=== PATIENT | male | born 1960 | race Caucasian/White ===

== ENCOUNTER 2018-09-13 10:51 | Inpatient (IN) | payer BC ==
[~2018-09-13] VITALS: Ht 182.9 cm; Wt 137.0 kg
[~2018-09-13 10:51] MED LIST: APIX5TAB2 PO; ASP325T PO; ASP325TEC PO; DILT240C54 PO; FERR325C PO; HYDR12.56; LEVO500T78 PO; LISI10TA; LSNP20T PO; METO50TA7 PO; METR500T PO; MULT-974 PO; PANT40TA2 PO; PRV20T PO
--- OUTSIDE RECORDS SUMMARY | 2018-09-13 10:59 | XMS REPORT | Clinical Summary ---
Author Author [facility] Organization [facility] Address Unknown Phone Unavailable Care Team Providers Care Drop Forger Name Role Phone Jeff Allen MD PCP Kendal Gamino RN Unavailable Unavailable Source Comments Some departments are not documenting in the electronic medical record. If you do not see the information that you expected, contact Release of Information in the Health Information Management department at [phone] for further assistance in locating additional records.[facility] Allergies No Known Allergies Medications End Date Status Medication Sig Dispensed Refills Start Date Active ferrous sulfate 325 mg Take 325 mg 0 (65 mg iron) tablet by mouth daily. Active pravastatin (PRAVACHOL) Take 20 mg by 0 20 mg tablet mouth at bedtime daily. Active APIXABAN (ELIQUIS PO) Take 10 mg by 0 mouth twice daily. Take 5mg in the morning and 5mg in the evening Active METOPROLOL SUCCINATE Take 100 mg 0 (TOPROL XL PO) by mouth twice daily. Active dronedarone (MULTAQ) 400 Take 1 Tab by 30 Tab 6 12/08/201 mg tabletIndications: mouth twice 6 Paroxysmal atrial daily with fibrillation (HCC), meals. Essential hypertension, hypertension with unspecified goal, Alcohol abuse, Sleep apnea, unspecified type, Chronic anticoagulation, Other iron deficiency anemia Active Problems Problem Noted Date Chronic anticoagulation, on apixaban 05/14/2015 Atrial fibrillation 05/14/2015 Paroxysmal atypical atrial flutter 05/09/2015 Paroxysmal atrial fibrillation 04/11/2015 Overview: 11/29/12: Stress test: Normal LV function. EF 62%. Normal LV size. No evidence of ME. Essential hypertension 04/11/2015 Hyperlipidemia 04/11/2015 Alcohol abuse 04/11/2015 Overview: ~1 quart whiskey/week Ex-cigarette smoker 04/11/2015 Overview: DC 2009, 20+PY Sleep apnea 04/11/2015 Overview: 2014:Previously refused CPAP Iron deficiency anemia 04/11/2015 Overview: 02/2015: Gastric ulcers, colonoscopy [place] Resolved Problems Problem Noted Date Resolved Date Anemia 04/11/2015 05/14/2015 Family History Medical History Relation Name Comments Coronary Artery Disease Father Premature Heart Disease Father Cancer Sister Coronary Artery Disease Sister Relation Name Status Comments Father Sister Social History Date Tobacco Use Types Packs/Day Years Used Quit: 07/27/2008 Former Smoker Cigarettes 1 20 Smokeless Tobacco: Never Used Alcohol Use Drinks/Week oz/Week Comments Yes 80 Shots of 48.0 liquor Sex Assigned at Date Recorded Not on file Industry Job Start Date Occupation Not on file Not on file Not on file Travel End Travel History Travel Start No recent travel history available. Last Filed Vital Signs Time Taken Vital Sign Reading 12/03/2015 1:40 PM CDT Blood Pressure 148/96 12/03/2015 1:40 PM CDT Pulse 66 05/15/2015 12:26 PM CDT Temperature 36.7 C (98.1 F) - Respiratory Rate - 05/15/2015 4:00 AM CDT Oxygen Saturation 92% - Inhaled Oxygen - Concentration 12/03/2015 1:40 PM CDT Weight 128.5 kg (283 lb 3.2 oz) 12/03/2015 1:40 PM CDT Height 182.9 cm (6' 0.01") 12/03/2015 1:40 PM CDT Body Mass Index 38.4 Plan of Treatment Health Maintenance Due Date Last Done Comments HEPATITIS C SCREENING 1960 PHYSICAL (COMPREHENSIVE) 1965 EXAM HIV SCREENING 1973 DTAP/TDAP VACCINES (1 - 1976 Tdap) COLORECTAL CANCER 2008 SCREENING SHINGLES RECOMBINANT 2008 VACCINE (1 of 2) INFLUENZA VACCINE 02/24/2018 Results Not on filefrom Last 3 Months Insurance Payer Benefit Subscriber ID Type Phone Address Plan / Group BCBS [facility] xxxxxxxxxxxx PPO PREF CARE BLUE Advance Directives Patient has advance care planning documents, and code status on file. For more information, please contact: [facility] [address] [place] [address] Date Inactivated Comments Code Status Date Activated 05/15/2015 3:14 PM Full Code 05/14/2015 6:42 AM Provider has discussed Code Status No, more discussion w/Patient or Family? needed
--- OUTSIDE RECORDS SUMMARY | 2018-09-13 10:59 | XMS REPORT | Continuity of Care Document ---
Author Author [facility] Organization [facility] Address Unknown Phone Unavailable Allergies Active Description Code Type Severity Reaction Onset Reported/Identified Relationship to Patient Clinical Status Yes NKANo Known Allergies NKA Miscellaneous Allergy Mild N/A 05/10/2009 Medications There is no data. Problems Date Dx Coded Attending Type Code Diagnosis Diagnosed By 05/03/2013 JEANNIE JACK MD 427.31 ATRIAL FIBRILLATION 05/03/2013 JEANNIE JACK MD 557.9 UNSPECIFIED VASCULAR INSUFFICIENCY OF INTESTINE 02/12/2015 ROSA BLEDSOE MD Ot 272.4 02/12/2015 ROSA BLEDSOE MD Ot 278.00 02/12/2015 ROSA BLEDSOE MD Ot 285.9 02/12/2015 LADI ROSS, ROSA Chowdhury Ot 401.9 02/12/2015 ROSA BLEDSOE MD Ot 427.31 02/12/2015 ROSA BLEDSOE MD Ot V85.38 03/19/2015 ROSA BLEDSOE MD Ot 285.9 03/26/2015 ARIANNA ROSS, JONY Hansen Ot 280.9 03/26/2015 ARIANNA ROSS, JONY Hansen Ot 530.10 03/26/2015 ARIANNA ROSS, JONY Hansen Ot 535.40 Procedures There is no data. Results There is no data. Encounters ACCT No. Visit Date/Time Discharge Status Pt. Type Provider Facility Loc./Unit Complaint [id number] 01/19/2018 13:00:00 01/19/2018 23:59:59 CLS Preadmit PERRY ROSS FACC, CATRACHITA RANGEL CCDS [facility] CARD DYSPNEA,HTN, PETER [id number] 01/01/2018 08:00:00 01/01/2018 23:59:59 CLS Preadmit PERRY ROSS FACC, CATRACHITA RANGEL CCDS [facility] CARD DYSPNEA,HTN, PETER, [id number] 05/13/2016 11:28:00 05/13/2016 23:59:59 CLS Preadmit DAVID PASTRANAINE Chris CHOKER HOOKER [facility] RAD SNORING,G47.33 [id number] 03/26/2015 09:01:00 03/26/2015 12:15:00 DIS Outpatient JONY KELLER MD [facility] SDC [id number] 03/22/2015 06:15:00 03/22/2015 23:59:59 CLS Outpatient JONY KELLER MD [facility] PREOP [id number] 02/19/2015 08:09:00 02/19/2015 23:59:59 CLS Outpatient ROSA BLEDSOE MD [facility] LAB [id number] 02/08/2015 13:14:00 02/12/2015 12:25:00 DIS Inpatient ROSA BLEDSOE MD [facility] [id number] 03/24/2013 21:10:00 03/31/2013 17:00:00 DIS Inpatient [id number] 11/25/2012 07:31:00 11/25/2012 23:59:59 CLS Outpatient [id number] 05/03/2013 15:32:00 05/03/2013 23:59:59 CLS Outpatient GUERO ROSS, JEANNIE Hansen
--- NOTE | 2018-09-13 11:27 | ED General ---
General Stated Complaint: HIGH HEMOGLOBIN - TOLD TO COME HER BY [facility] Source of Information: Patient Exam Limitations: No Limitations History of Present Illness Date Seen by Provider: Sep 13, 2018 Time Seen by Provider: 11:24 Initial Comments To ER per private vehicle from [facility] with reports of low hemoglobin. He states he's been having lightheadedness, general fatigue and shortness of breath. He was told today that his hemoglobin is 7.2 at the clinic. He states he does have a history of bleeding hemorrhoids and bright red blood per rectum . He is on Eliquis for history of atrial fibrillation. Follows with Dr. Villarreal. Primary care provider is Iris CARR nurse practitioner of [facility]. States the symptoms have been present for several weeks. Timing/Duration: 1-2 Days Severity: Moderate Associated Systoms: No Headaches; Malaise; No Syncope; Weakness Allergies and Home Medications Allergies Coded Allergies: NKANo Known Allergies (Unverified Allergy, Mild, 05/10/09) Home Medications Diltiazem Hcl 240 Mg Cap.sr.24h, 240 MG PO DAILY, (Reported) Ferrous Sulfate 325 ( 65 )Mg Capsule.sa, 325 ( PO DAILY Prescribed by: ROSA BLEDSOE on 02/12/15 0945 Metoprolol Succinate 50 Mg Tab, 50 MG PO BID Prescribed by: JEANNIE JACK on 03/31/13 0857 Pantoprazole Sodium 40 Mg Tablet.dr, 40 MG PO DAILY Prescribed by: JONY KELLER on 03/26/15 1051 Pravastatin Sodium 20 Mg Tablet, 20 MG PO HS, (Reported) Patient Home Medication List Home Medication List Reviewed: Yes Review of Systems Review of Systems Constitutional: see HPI, weakness EENTM: see HPI Respiratory: see HPI, dyspnea on exertion, short of breath Genitourinary: no symptoms reported Musculoskeletal: no symptoms reported Skin: no symptoms reported Psychiatric/Neurological: No Symptoms Reported Hematologic/Lymphatic: No Symptoms Reported Past Ydkylwz-Jlvoky-Shfznk Hx Patient Social History Recent Foreign Travel: No (N) Contact w/Someone Who Travel: No (N) Immunizations Up To Date Tetanus Booster (TDap): More than 5yrs Seasonal Allergies Seasonal Allergies: No Past Medical History Atrial Fibrillation, Hypertension Sexually Transmitted Disease: No HIV/AIDS: No Colitis Cataract Loss of Vision: Denies Hearing Impairment: Denies Adverse Reaction/Blood Tranf: No Family Medical History No Pertinent Family Hx Physical Exam Vital Signs Vital Signs - First Documented 09/13/18 11:15 Temp 98.0 Pulse 84 Resp 18 B/P (MAP) 140/82 (101) Pulse Ox 98 O2 Delivery Room Air Capillary Refill : Height, Weight, BMI Height: 6'0.00" Weight: 281lbs. 12.8oz. 127.656015uq; BMI Method:Stated General Appearance: No Apparent Distress, WD/WN Eyes: Bilateral Eye Normal Inspection, Bilateral Eye PERRL, Bilateral Eye EOMI HEENT: PERRL/EOMI, TMs Normal, Other (firm mobile nodule to the right cheek nontender with overlying skin normal in appearance. He states that he's had this for 20+ years and that has not changed. This has been evaluated by Dr. Shepard as well.) Neck: Full Range of Motion, Normal Inspection Respiratory: Chest Non Tender, No Accessory Muscle Use, No Respiratory Distress Cardiovascular: Regular Rate, Rhythm, Normal Peripheral Pulses, Other (EKG reveals normal sinus rhythm without ectopy, rate of 75.) Gastrointestinal: Normal Bowel Sounds, Non Tender, Soft Extremity: Normal Capillary Refill, Normal Inspection Neurologic/Psychiatric: Alert, Oriented x3 Progress/Results/Core Measures Suspected Sepsis SIRS Temperature: Pulse: Respiratory Rate: Laboratory Tests 09/13/18 11:45: White Blood Count 5.6 Blood Pressure / Mean: Laboratory Tests 09/13/18 11:45: Creatinine 0.90, Platelet Count 246, Total Bilirubin 0.5 Results/Orders Lab Results Laboratory Tests Test 09/13/18 11:45 Range/Units White Blood Count 5.6 4.3-11.0 10^3/uL Red Blood Count 4.22 L 4.35-5.85 10^6/uL Hemoglobin 7.4 L 13.3-17.7 G/DL Hematocrit 29 L 40-54 % Mean Corpuscular Volume 68 L 80-99 FL Mean Corpuscular Hemoglobin 18 L 25-34 PG Mean Corpuscular Hemoglobin Concent 26 L 32-36 G/DL Red Cell Distribution Width 22.4 H 10.0-14.5 % Platelet Count 246 130-400 10^3/uL Mean Platelet Volume 9.9 7.4-10.4 FL Neutrophils (%) (Auto) 54 42-75 % Lymphocytes (%) (Auto) 31 12-44 % Monocytes (%) (Auto) 10 0-12 % Eosinophils (%) (Auto) 4 0-10 % Basophils (%) (Auto) 1 0-10 % Neutrophils # (Auto) 3.0 1.8-7.8 X 10^3 Lymphocytes # (Auto) 1.7 1.0-4.0 X 10^3 Monocytes # (Auto) 0.6 0.0-1.0 X 10^3 Eosinophils # (Auto) 0.2 0.0-0.3 10^3/uL Basophils # (Auto) 0.0 0.0-0.1 10^3/uL Sodium Level 137 135-145 MMOL/L Potassium Level 4.3 3.6-5.0 MMOL/L Chloride Level 105 98-107 MMOL/L Carbon Dioxide Level 25 21-32 MMOL/L Anion Gap 7 5-14 MMOL/L Blood Urea Nitrogen 8 7-18 MG/DL Creatinine 0.90 0.60-1.30 MG/DL Estimat Glomerular Filtration Rate > 60 BUN/Creatinine Ratio 9 Glucose Level 87 70-105 MG/DL Calcium Level 9.2 8.5-10.1 MG/DL Corrected Calcium 9.1 8.5-10.1 MG/DL Total Bilirubin 0.5 0.1-1.0 MG/DL Aspartate Amino Transf (AST/SGOT) 20 5-34 U/L Alanine Aminotransferase (ALT/SGPT) 14 0-55 U/L Alkaline Phosphatase 79 40-136 U/L Total Protein 6.9 6.4-8.2 GM/DL Albumin 4.1 3.2-4.5 GM/DL My Orders Orders - MARY ALICE MARTINS APRN Cbc With Automated Diff (09/13/18 11:14) Comprehensive Metabolic Panel (09/13/18 11:14) Iv Heplock-Insert (Order) (09/13/18 11:20) Ekg Tracing (09/13/18 11:20) Chest 1 View, Ap/Pa Only (09/13/18 11:20) Red Cells Leukocytes Reduced (09/13/18 11:20) Type And Screen (09/13/18 11:20) Vital Signs/I&O 09/13/18 11:15 Temp 98.0 Pulse 84 Resp 18 B/P (MAP) 140/82 (101) Pulse Ox 98 O2 Delivery Room Air Capillary Refill : Diagnostic Imaging Diagonstic Imaging: Xray Comments NAME: DELMIS ZAPATA [facility] REC#: [id number] PT STATUS: REG ER : 1960 PHYSICIAN: MARY ALICE MARTINS APRN ADMIT DATE: 09/13/18/ER Draft Date of Exam:09/13/18 CHEST 1 VIEW, AP/PA ONLY INDICATION: Low hemoglobin. TIME OF EXAMINATION: 11:58 AM. COMPARISON: 03/25/2013. FINDINGS: The heart size is normal. The pulmonary vascularity is unremarkable. The lungs are clear. No infiltrate, effusion, or pneumothorax is detected. IMPRESSION: No acute cardiopulmonary process is detected. Dictated on workstation # [id number] Dict: 09/13/18 1215 Trans: 09/13/18 1218 [id number] Interpreted by: MICHAELLE FERGUSON MD Electronically signed by: Departure Impression Primary Impression: Symptomatic anemia Additional Impressions: Hematochezia Atrial fibrillation Anticoagulant long-term use Disposition: ADMITTED INPATIENT Condition: Stable Admissions Decision to Admit Reason: Admit from ER (General) Decision to Admit/Date: Sep 13, 2018 Time/Decision to Admit Time: 11:49 Departure-Patient Inst. Referrals: CORAZON CARR (PCP/Family) Primary Care Physician MARY ALICE MARTINS APRN Sep 13, 2018 11:26
[2018-09-13 11:55] LABS: BASOPHILS % (AUTO) 1 % (0-10); EOSINOPHILS # (AUTO) 0.2 10^3/uL (0.0-0.3); EOSINOPHILS % (AUTO) 4 % (0-10); HEMATOCRIT 29 % (40-54); HEMOGLOBIN 7.4 G/DL (13.3-17.7); LYMPHOCYTES # (AUTO) 1.7 X 10^3 (1.0-4.0); LYMPHOCYTES % (AUTO) 31 % (12-44); MEAN CORPUSCULAR HEMOGLOBIN 18 PG (25-34); MEAN CORPUSCULAR HGB CONC 26 G/DL (32-36); MEAN CORPUSCULAR VOLUME 68 FL (80-99); MEAN PLATELET VOLUME 9.9 FL (7.4-10.4); MONOCYTES # (AUTO) 0.6 X 10^3 (0.0-1.0); MONOCYTES % (AUTO) 10 % (0-12); NEUTROPHILS % (AUTO) 54 % (42-75); PLATELET COUNT 246 10^3/uL (130-400); RED CELL DISTRIBUTION WIDTH 22.4 % (10.0-14.5); WHITE BLOOD COUNT 5.6 10^3/uL (4.3-11.0)
[2018-09-13 12:14] LABS: ALANINE AMINOTRANSFERASE 14 U/L (0-55); ALBUMIN 4.1 GM/DL (3.2-4.5); ALKALINE PHOSPHATASE 79 U/L (40-136); BILIRUBIN,TOTAL 0.5 MG/DL (0.1-1.0); BUN/CREATININE RATIO 9; CALCIUM 9.2 MG/DL (8.5-10.1); CARBON DIOXIDE 25 MMOL/L (21-32); CHLORIDE 105 MMOL/L (98-107); GFR ESTIMATED > 60; GLUCOSE 87 MG/DL (70-105); POTASSIUM 4.3 MMOL/L (3.6-5.0); SODIUM 137 MMOL/L (135-145); TOTAL PROTEIN 6.9 GM/DL (6.4-8.2)
--- NOTE | 2018-09-13 12:18 | Diagnostic Imaging Report ---
INDICATION: Low hemoglobin. TIME OF EXAMINATION: 11:58 AM. COMPARISON: 03/25/2013. FINDINGS: The heart size is normal. The pulmonary vascularity is unremarkable. The lungs are clear. No infiltrate, effusion, or pneumothorax is detected. IMPRESSION: No acute cardiopulmonary process is detected. Dictated by: Dictated on workstation # [id number]
[2018-09-13 15:00] VITALS: BP 171/78
[2018-09-13] MEDS ORDERED: NS IV 500 ML 500 ML IV SCH (15:15)
[2018-09-13] MEDS ORDERED: NS IV 1000 ML 1,000 ML IV SCH (15:15)
[2018-09-13] MEDS ORDERED: CATHETER FLUSH 10 ML SYR IV PRN (15:15)
[2018-09-13] MEDS ORDERED: PRAV20TA3 PO (15:19)
[2018-09-13] MEDS ORDERED: APIX5TAB PO (15:19)
[2018-09-13] MEDS ORDERED: METO-395 PO (15:20)
--- NOTE | 2018-09-13 15:21 | NUR ---
WENT OVER THE EXT MED HX WITH THE PATIENT, HE VERIFIED HOW HE TAKES EACH MED. HE STATES HE DOES NOT TAKE ANYTHING OTC.
[2018-09-13 15:35] VITALS: BP 135/72
--- NOTE | 2018-09-13 15:36 | Consultation-Cardiology ---
HPI-Cardiology Cardiology Consultation: Date of Consultation 09/13/18 Time Seen by a Provider: 16:15 Date of Admission 09-13-18 Attending Physician Renny Michaud MD Admitting Physician Andressa Sosa Consulting Physician Ioana Villarreal MD HPI: Chief Complaint: Anemia PAF OAC Mr. Corbin is a 58 year old male admitted to 433 from the ED with anemia. He reports he has had increasing dyspnea for the last couple months. Dyspnea most noticeable when climbing stairs. He went to his PCP's for lab work to be done and was notified he needed to come to [facility] d/t low counts. He denies any c/o CP , palpitations, syncope or near syncope. He reports he has had some dark bowel movements. He has had some bright red blood per rectum. No hematuria. He denies any n/v/d. No c/o fever or chills. Review of Systems-Cardiology Review of Systems Constitutional: No chills, No fever Eyes: No vision change Ears/Nose/Throat: No epistaxis, No recent hearing loss, No ulcerations Respiratory: As described under HPI Cardiovascular: As described under HPI Gastrointestinal: No constipation, No diarrhea, No nausea, No vomiting; stool coloration changes (dark) Genitourinary: No dysuria, No hematuria Skin: No rash, No ulcerations Psychiatric/Neurological: No anxiety, No depression, No seizure, No focal weakness, No syncope Hematologic: No bleeding abnormalities VHN-Tbugbq-Txltwe Hx Patient Social History Alcohol Use: Occasionally Uses Recreational Drug Use: Yes (POT) Smoking Status: Never a Smoker Former smoker/When Quit: Feb 08, 2009 Recent Foreign Travel: No Recent Infectious Disease Expo: No Hospitalization with Isolation: Denies Immunizations Up To Date Tetanus Booster (TDap): More than 5yrs Past Medical History PMH As described under Assessment. Allergies and Home Medications Allergies Coded Allergies: NKANo Known Allergies (Unverified Allergy, Mild, 05/10/09) Home Medications Apixaban 5 Mg Tablet, 5 MG PO BID, (Reported) Metoprolol Succinate 100 Mg Tab.er.24h, 100 MG PO BID, (Reported) Pravastatin Sodium 20 Mg Tablet, 20 MG PO HS, (Reported) Patient Home Medication List Home Medication List Reviewed: Yes Physical Exam-Cardiology Physical Exam Vital Signs/I&O 2/1809/13/18 09/13/18 09/13/18 11:15 14:33 15:00 15:35 Temp 98.0 95.9 98.6 Pulse 84 64 67 66 Resp 18 14 16 18 B/P (MAP) 140/82 (101) 118/69 (85) 171/78 135/72 Pulse Ox 98 98 99 99 O2 Delivery Room Air Room Air Room Air Room Air 09/13/18 09/13/18 15:52 16:04 Temp 97.6 Pulse 70 81 B/P (MAP) 136/72 Pulse Ox 99 O2 Delivery Room Air Capillary Refill : Less Than 3 Seconds Constitutional: AAO x 3, well-developed, well-nourished HEENT: PERRL, other (right side of face with 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 unchanged for several years), hearing is well preserved, oral hygience is good Neck: No carotid bruit; carotid pulses are 2 + bilaterally Respiratory: No accessory muscle use, No respiratory distress; chest expansion is symmetric, chest is bilaterally symmetric, lungs clear to auscultation Cardiovascular: regular rate-rhythm; No JVD; S1 and S2 Gastrointestinal: No tender; soft, round, audible bowel sounds Extremities: no lower extremity edema bilateral Neurologic/Psychiatric: grossly intact, power is 5/5 both on sides Skin: No rash, No ulcerations Data Review Labs Laboratory Tests 09/13/18 11:45: White Blood Count 5.6, Red Blood Count 4.22L, Hemoglobin 7.4L, Hematocrit 29L, Mean Corpuscular Volume 68L, Mean Corpuscular Hemoglobin 18L, Mean Corpuscular Hemoglobin Concent 26L, Red Cell Distribution Width 22.4H, Platelet Count 246, Mean Platelet Volume 9.9, Neutrophils (%) (Auto) 54, Lymphocytes (%) (Auto) 31, Monocytes (%) (Auto) 10, Eosinophils (%) (Auto) 4, Basophils (%) (Auto) 1, Neutrophils # (Auto) 3.0, Lymphocytes # (Auto) 1.7, Monocytes # (Auto) 0.6, Eosinophils # (Auto) 0.2, Basophils # (Auto) 0.0, Sodium Level 137, Potassium Level 4.3, Chloride Level 105, Carbon Dioxide Level 25, Anion Gap 7, Blood Urea Nitrogen 8, Creatinine 0.90, Estimat Glomerular Filtration Rate > 60, BUN/ Creatinine Ratio 9, Glucose Level 87, Calcium Level 9.2, Corrected Calcium 9.1, Total Bilirubin 0.5, Aspartate Amino Transf (AST/SGOT) 20, Alanine Aminotransferase (ALT/SGPT) 14, Alkaline Phosphatase 79, Total Protein 6.9, Albumin 4.1 Radiology NAME: DELMIS CORBIN [facility] REC#: [id number] PT STATUS: ADM IN : 1960 PHYSICIAN: MARY ALICE MARTINS APRN ADMIT DATE: 09/13/18 Signed Date of Exam: 09/13/18 CHEST 1 VIEW, AP/PA ONLY INDICATION: Low hemoglobin. TIME OF EXAMINATION: 11:58 AM. COMPARISON: 03/25/2013. FINDINGS: The heart size is normal. The pulmonary vascularity is unremarkable. The lungs are clear. No infiltrate, effusion, or pneumothorax is detected. IMPRESSION: No acute cardiopulmonary process is detected. Dictated by: Dictated on workstation # [id number] Dict: 09/13/18 1215 Trans: 09/13/18 1512 Interpreted by: MICHAELLE FERGUSON MD Electronically signed by: MICHAELLE FERGUSON MD 09/13/18 1512 A/P-Cardiology Assessment/Admission Diagnosis Anemia of undetermined etiology - suspected GI bleed Exertional shortness of breath, chronic PAFib/Flutter, possibly related to intermittent heavy alcohol use and/or sleep apnea syndrome, s/p a fib ablation with Dr West Apr 2015. 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 Way consulted H/O PAF for which he has been on OAC with Eliquis for stroke prophylaxis - we will hold off on Eliquis until source of blood loss has been determined and treated Telemetry Continue statin and BB Monitor lab closely Further recs will be based on his hospital course We would like to thank medical services for this consult RANI CASTLE Sep 13, 2018 15:36
[2018-09-13 15:52] VITALS: BP 136/72
[2018-09-13 16:00] VITALS: BP 140/76
[2018-09-13] MEDS ORDERED: FLU QUADRIvalent (5+ YOA) 2018-2019 (AFLURIA) 0.5 ML IM ONE (16:00)
--- NOTE | 2018-09-13 16:29 | Consultation ---
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 Garber , who has been managing him for arrhythmias. His hemoglobin was found to be decreased at 7.4 and he has since been evaluated in the emergency room. He is due to receive blood transfusion. During the visit, he reports ongoing, intermittent rectal bleeding for several days. In the past, he has a history of a tubulovillous adenoma of the sigmoid colon about 6 years ago. A follow-up colonoscopy in 2014 was negative for recurrence of the po Allergies and Home Medications Allergies Coded Allergies: NKANo Known Allergies (Unverified Allergy, Mild, 05/10/09) Home Medications Apixaban 5 Mg Tablet, 5 MG PO BID, (Reported) Metoprolol Succinate 100 Mg Tab.er.24h, 100 MG PO BID, (Reported) Pravastatin Sodium 20 Mg Tablet, 20 MG PO HS, (Reported) Patient Home Medication List Home Medication List Reviewed: Yes Past Nmqdgns-Tgdotf-Abqwim Hx Patient Social History Alcohol Use: Occasionally Uses Alcohol Beverage of Choice: Whiskey Recreational Drug Use: No Smoking Status: Never a Smoker Recent Foreign Travel: No Contact w/Someone Who Travel: No Recent Infectious Disease Expo: No Recent Hopitalizations: No Immunizations Up To Date Tetanus Booster (TDap): More than 5yrs Seasonal Allergies Seasonal Allergies: No Past Medical History Surgeries: Yes (WISDOM TEETH) Respiratory: No Cardiac: No Atrial Fibrillation, Hypertension Neurological: No Sexually Transmitted Disease: No HIV/AIDS: No Gastrointestinal: Yes (GI BLEED) Colitis Musculoskeletal: No Endocrine: No (was told he was borderline dm) Cataract Loss of Vision: Denies Hearing Impairment: Denies Cancer: No Psychosocial: No Integumentary: No Blood Disorders: No Adverse Reaction/Blood Tranf: No Family Medical History No Pertinent Family Hx Review of Systems-General Constitutional: weakness EENTM: no symptoms reported Respiratory: no symptoms reported Cardiovascular: palpitations Gastrointestinal: see HPI Genitourinary: no symptoms reported Musculoskeletal: no symptoms reported Skin: no symptoms reported Psychiatric/Neurological: No Symptoms Reported Physical Exam-General Problems Physical Exam Vital Signs Vital Signs - First Documented 09/13/18 11:15 Temp 98.0 Pulse 84 Resp 18 B/P (MAP) 140/82 (101) Pulse Ox 98 O2 Delivery Room Air Capillary Refill : Less Than 3 Seconds General Appearance: no apparent distress Respiratory: lungs clear Cardiovascular: tachycardia Gastrointestinal: non tender Rectal: deferred Neurologic/Psychiatric: alert Skin: pallor Comments long-standing swelling over the right parotid region, 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 Assessment/Plan Assessment/Plan Admission Diagnosis/Plan gentleman with anemia, possibly due to chronic blood loss. Previous history of colon polyps. Reasonable to observe, transfuse and perform colonoscopy during the current hospital admission. Admission Status: Observation JONY KELLER MD Sep 13, 2018 16:29
--- NOTE | 2018-09-13 17:07 | Consultation-Cardiology ---
HPI-Cardiology Cardiology Consultation: Date of Consultation 09/13/18 Time Seen by a Provider: 16:50 Date of Admission Attending Physician Renny Michaud MD Admitting Physician Andressa Sosa Consulting Physician CATRACHITA AMADOR MD, MA, FACP, FACC, [facility], CCDS Physician requesting consult: Dr Michaud HPI: Chief Complaint: Reason for consultation: Anemia, PAF, OAC HPI Mr. Corbin is a 58 year old male admitted to [facility] from the ED with anemia. He reports he has had increasing dyspnea for the last couple months. Dyspnea most noticeable when climbing stairs. He went to his PCP's for lab work to be done and was notified he needed to come to [facility] d/t low counts. He denies any c/o CP , palpitations, syncope or near syncope. He reports he has had some dark bowel movements. He has had some bright red blood per rectum. No hematuria. He denies any n/v/d. No c/o fever or chills. Review of Systems-Cardiology Review of Systems Constitutional: No chills, No fever Eyes: No vision change Ears/Nose/Throat: No epistaxis, No recent hearing loss, No ulcerations Respiratory: As described under HPI Cardiovascular: As described under HPI Gastrointestinal: No constipation, No diarrhea, No nausea, No vomiting; stool coloration changes (dark) Genitourinary: No dysuria, No hematuria Skin: No rash, No ulcerations Psychiatric/Neurological: No anxiety, No depression, No seizure, No focal weakness, No syncope Hematologic: No bleeding abnormalities [id number]-[id number] Hx Patient Social History Alcohol Use: Occasionally Uses Recreational Drug Use: No Smoking Status: Never a Smoker Former smoker/When Quit: Feb 08, 2009 Recent Foreign Travel: No Recent Infectious Disease Expo: No Hospitalization with Isolation: Denies Physical Abuse Screen: No Sexual Abuse: No Immunizations Up To Date Tetanus Booster (TDap): More than 5yrs Past Medical History PMH As described under Assessment. Allergies and Home Medications Allergies Coded Allergies: NKANo Known Allergies (Unverified Allergy, Mild, 05/10/09) Home Medications Apixaban 5 Mg Tablet, 5 MG PO BID, (Reported) Metoprolol Succinate 100 Mg Tab.er.24h, 100 MG PO BID, (Reported) Pravastatin Sodium 20 Mg Tablet, 20 MG PO HS, (Reported) Patient Home Medication List Home Medication List Reviewed: Yes Physical Exam-Cardiology Physical Exam Vital Signs/I&O 09/13/18 09/13/18 09/13/18 09/13/18 11:15 14:33 15:00 15:35 Temp 98.0 95.9 98.6 Pulse 84 64 67 66 Resp 18 14 16 18 B/P (MAP) 140/82 (101) 118/69 (85) 171/78 135/72 Pulse Ox 98 98 99 99 O2 Delivery Room Air Room Air Room Air Room Air 09/13/18 09/13/18 15:52 16:04 Temp 97.6 Pulse 70 67 B/P (MAP) 136/72 Pulse Ox 99 O2 Delivery Room Air Capillary Refill : Less Than 3 Seconds Constitutional: AAO x 3, well-developed, well-nourished HEENT: PERRL, other (right side of face with 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 unchanged for several years), hearing is well preserved, oral hygience is good Neck: No carotid bruit; carotid pulses are 2 + bilaterally Respiratory: No accessory muscle use, No respiratory distress; chest expansion is symmetric, chest is bilaterally symmetric, lungs clear to auscultation Cardiovascular: regular rate-rhythm; No JVD; S1 and S2 Gastrointestinal: No tender; soft, round, audible bowel sounds Rectal: deferred Extremities: no lower extremity edema bilateral Neurologic/Psychiatric: grossly intact, power is 5/5 both on sides Skin: No rash, No ulcerations Data Review Labs Laboratory Tests 09/13/18 11:45: White Blood Count 5.6, Red Blood Count 4.22L, Hemoglobin 7.4L, Hematocrit 29L, Mean Corpuscular Volume 68L, Mean Corpuscular Hemoglobin 18L, Mean Corpuscular Hemoglobin Concent 26L, Red Cell Distribution Width 22.4H, Platelet Count 246, Mean Platelet Volume 9.9, Neutrophils (%) (Auto) 54, Lymphocytes (%) (Auto) 31, Monocytes (%) (Auto) 10, Eosinophils (%) (Auto) 4, Basophils (%) (Auto) 1, Neutrophils # (Auto) 3.0, Lymphocytes # (Auto) 1.7, Monocytes # (Auto) 0.6, Eosinophils # (Auto) 0.2, Basophils # (Auto) 0.0, Sodium Level 137, Potassium Level 4.3, Chloride Level 105, Carbon Dioxide Level 25, Anion Gap 7, Blood Urea Nitrogen 8, Creatinine 0.90, Estimat Glomerular Filtration Rate > 60, BUN/ Creatinine Ratio 9, Glucose Level 87, Calcium Level 9.2, Corrected Calcium 9.1, Total Bilirubin 0.5, Aspartate Amino Transf (AST/SGOT) 20, Alanine Aminotransferase (ALT/SGPT) 14, Alkaline Phosphatase 79, Total Protein 6.9, Albumin 4.1 Laboratory Tests 09/13/18 11:45 A/P-Cardiology Assessment/Admission Diagnosis GI bleed leading to anemia Exertional shortness of breath, chronic PAFib/Flutter, possibly related to intermittent heavy alcohol use and/or sleep apnea syndrome, s/p a fib ablation with Dr West Apr 2015. 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 Way consulted H/O PAF for which he has been on OAC with Eliquis for stroke prophylaxis - we will hold off on Eliquis until source of blood loss has been determined and treated Telemetry Continue statin and BB Monitor lab closely Further recs will be based on his hospital course We would like to thank medical services for this consult CATRACHITA AMADOR MD FACP [facility] CCDS Sep 13, 2018 17:06
[2018-09-13 17:50] VITALS: BP 140/76
[2018-09-13 20:00] VITALS: BP 147/74
[2018-09-13] MEDS ORDERED: NON-FORMULARY MEDICATION 1 EA EA (Pravastatin Sodium 20 MG) PO SCH (21:00)
[2018-09-13] MEDS: meTOprolol SUCCINATE 100 MG (TOPROL XL) TAB PO SCH (21:23)
[2018-09-13] MEDS: SIMvastatin 10 MG (ZOCOR) TAB PO SCH (21:23)
[2018-09-14] VITALS: BP 132/73
[2018-09-14 04:00] VITALS: BP 129/70
[2018-09-14 06:53] LABS: BASOPHILS % (AUTO) 0 % (0-10); EOSINOPHILS # (AUTO) 0.2 10^3/uL (0.0-0.3); EOSINOPHILS % (AUTO) 3 % (0-10); HEMATOCRIT 29 % (40-54); HEMOGLOBIN 7.8 G/DL (13.3-17.7); LYMPHOCYTES # (AUTO) 1.2 X 10^3 (1.0-4.0); LYMPHOCYTES % (AUTO) 24 % (12-44); MEAN CORPUSCULAR HEMOGLOBIN 18 PG (25-34); MEAN CORPUSCULAR HGB CONC 27 G/DL (32-36); MEAN CORPUSCULAR VOLUME 68 FL (80-99); MONOCYTES # (AUTO) 0.4 X 10^3 (0.0-1.0); MONOCYTES % (AUTO) 8 % (0-12); NEUTROPHILS # (AUTO) 3.3 X 10^3 (1.8-7.8); NEUTROPHILS % (AUTO) 64 % (42-75); PLATELET COUNT 131 10^3/uL (130-400); RED CELL DISTRIBUTION WIDTH 22.7 % (10.0-14.5); WHITE BLOOD COUNT 5.1 10^3/uL (4.3-11.0)
[2018-09-14 07:26] LABS: ALANINE AMINOTRANSFERASE 14 U/L (0-55); ALBUMIN 3.7 GM/DL (3.2-4.5); ALKALINE PHOSPHATASE 72 U/L (40-136); BILIRUBIN,TOTAL 0.8 MG/DL (0.1-1.0); BUN/CREATININE RATIO 12; CALCIUM 8.9 MG/DL (8.5-10.1); CARBON DIOXIDE 23 MMOL/L (21-32); CHLORIDE 106 MMOL/L (98-107); CREATININE SERUM 0.84 MG/DL (0.60-1.30); GFR ESTIMATED > 60; GLUCOSE 95 MG/DL (70-105); POTASSIUM 4.3 MMOL/L (3.6-5.0); SODIUM 139 MMOL/L (135-145); TOTAL PROTEIN 6.2 GM/DL (6.4-8.2)
[2018-09-14 08:00] VITALS: BP 125/82
[2018-09-14] MEDS: meTOprolol SUCCINATE 100 MG (TOPROL XL) TAB PO SCH ×2 (08:43→20:33)
--- NOTE | 2018-09-14 09:02 | NUR ---
DR KELLER IN TO SEE PATIENT, NEW ORDERS RECEIVED.
--- NOTE | 2018-09-14 10:48 | Progress Note-Cardiology ---
Cardiology SOAP Progress Note Objective: I&O/Vital Signs 09/14/18 09/14/18 09/14/18 09/14/18 00:00 01:00 04:00 07:00 Temp 98.9 99.1 Pulse 78 68 66 64 Resp 20 20 B/P (MAP) 132/73 (92) 129/70 (89) Pulse Ox 96 97 O2 Delivery Room Air Room Air 09/14/18 08:00 Temp 98.4 Pulse 91 Resp 18 B/P (MAP) 125/82 (96) Pulse Ox 97 O2 Delivery Room Air 09/14/18 00:00 Intake Total 340 ml Output Total 675 ml Balance -335 ml Weight (Pounds): 302 Weight (Ounces): 0.0 Weight (Calculated Kilograms): 136.998572 Constitutional: AAO x 3, well-developed, well-nourished Respiratory: No accessory muscle use, No respiratory distress; chest expansion is symmetric, chest is bilaterally symmetric, lungs clear to auscultation Cardiovascular: regular rate-rhythm; No JVD; S1 and S2 Gastrointestional: No tender; soft, round, audible bowel sounds Extremities: no lower extremity edema bilateral Neurologic/Psychiatric: grossly intact, power is 5/5 both on sides Skin: No rash, No ulcerations Results/Procedures: Labs Laboratory Tests 09/13/18 11:45: White Blood Count 5.6, Red Blood Count 4.22L, Hemoglobin 7.4L, Hematocrit 29L, Mean Corpuscular Volume 68L, Mean Corpuscular Hemoglobin 18L, Mean Corpuscular Hemoglobin Concent 26L, Red Cell Distribution Width 22.4H, Platelet Count 246, Mean Platelet Volume 9.9, Neutrophils (%) (Auto) 54, Lymphocytes (%) (Auto) 31, Monocytes (%) (Auto) 10, Eosinophils (%) (Auto) 4, Basophils (%) (Auto) 1, Neutrophils # (Auto) 3.0, Lymphocytes # (Auto) 1.7, Monocytes # (Auto) 0.6, Eosinophils # (Auto) 0.2, Basophils # (Auto) 0.0, Sodium Level 137, Potassium Level 4.3, Chloride Level 105, Carbon Dioxide Level 25, Anion Gap 7, Blood Urea Nitrogen 8, Creatinine 0.90, Estimat Glomerular Filtration Rate > 60, BUN/ Creatinine Ratio 9, Glucose Level 87, Calcium Level 9.2, Corrected Calcium 9.1, Total Bilirubin 0.5, Aspartate Amino Transf (AST/SGOT) 20, Alanine Aminotransferase (ALT/SGPT) 14, Alkaline Phosphatase 79, Total Protein 6.9, Albumin 4.1 09/14/18 05:35: White Blood Count 5.1, Red Blood Count 4.26L, Hemoglobin 7.8L, Hematocrit 29L, Mean Corpuscular Volume 68L, Mean Corpuscular Hemoglobin 18L, Mean Corpuscular Hemoglobin Concent 27L, Red Cell Distribution Width 22.7H, Platelet Count 131, Mean Platelet Volume , Neutrophils (%) (Auto) 64, Lymphocytes (%) (Auto) 24, Monocytes (%) (Auto) 8, Eosinophils (%) (Auto) 3, Basophils (%) (Auto) 0, Neutrophils # (Auto) 3.3, Lymphocytes # (Auto) 1.2, Monocytes # (Auto) 0.4, Eosinophils # (Auto) 0.2, Basophils # (Auto) 0.0, Sodium Level 139, Potassium Level 4.3, Chloride Level 106, Carbon Dioxide Level 23, Anion Gap 10, Blood Urea Nitrogen 10, Creatinine 0.84, Estimat Glomerular Filtration Rate > 60, BUN/ Creatinine Ratio 12, Glucose Level 95, Calcium Level 8.9, Corrected Calcium 9.1 , Total Bilirubin 0.8, Aspartate Amino Transf (AST/SGOT) 21, Alanine Aminotransferase (ALT/SGPT) 14, Alkaline Phosphatase 72, Total Protein 6.2L, Albumin 3.7 A/P: Assessment: GI bleed leading to anemia Exertional shortness of breath, chronic PAFib/Flutter, possibly related to intermittent heavy alcohol use and/or sleep apnea syndrome, s/p a fib ablation with Dr West Apr 2015. 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 Way consulted H/O PAF for which he has been on OAC with Eliquis for stroke prophylaxis - we will hold off on Eliquis until source of blood loss has been determined and treated - colo/EGD planned for tomorrow with Dr. Way I have spoke with Dr. Way this morning Continue statin and BB Monitor lab closely RANI CASTLE Sep 14, 2018 10:48
--- NOTE | 2018-09-14 11:41 | Progress Note (SOAP) ---
Subjective Date Seen by a Provider: Sep 14, 2018 Time Seen by a Provider: 09:15 Subjective/Events-last exam Patient has not passed any stool yet. Hemoglobin 7.8 with 1 unit of blood transfusion. No cardiac symptoms. Review of Systems General: No Chills, No Night Sweats, No Fatigue, No Malaise HEENT: No Head Aches, No Eye Pain, No Ear Pain, No Dysphasia, No Sinus Congestion, No Post Nasal Drip, No Sore Throat Pulmonary: No Dyspnea, No Cough, No Pleuritic Chest Pain Cardiovascular: No: Chest Pain, Palpitations, Orthopnea, Paroxysmal Noc. Dyspnea, Edema, Lt Headedness Gastrointestinal: No: Nausea, Vomiting, Abdominal Pain, Diarrhea, Constipation , Melena, Hematochezia Genitourinary: No Dysuria, No Frequency, No Incontinence, No Hematuria, No Retention Musculoskeletal: No: other, neck pain, shoulder pain, arm pain, back pain, hand pain, leg pain, foot pain Neurological: No: Weakness, Numbness, Incoordination, Change in speech, Confusion, Seizures, Other Objective Exam Vital Signs Date Time Temp Pulse Resp B/P (MAP) Pulse Ox O2 Delivery O2 Flow Rate FiO2 09/14/18 08:10 96 Room Air 09/14/18 08:00 98.4 91 18 125/82 (96) 97 Room Air 09/14/18 07:00 64 09/14/18 04:00 99.1 66 20 129/70 (89) 97 Room Air 09/14/18 01:00 68 09/14/18 00:00 98.9 78 20 132/73 (92) 96 Room Air 09/13/18 20:50 96 Room Air 09/13/18 20:00 99.3 69 16 147/74 (98) 96 Room Air 09/13/18 19:00 71 09/13/18 17:50 97.1 68 140/76 09/13/18 16:04 67 09/13/18 16:00 97.6 68 18 140/76 (97) 99 Room Air 09/13/18 15:52 97.6 70 136/72 99 Room Air 09/13/18 15:35 98.6 66 18 135/72 99 Room Air 09/13/18 15:00 95.9 67 16 171/78 99 Room Air 09/13/18 15:00 99 Room Air 09/13/18 14:33 64 14 118/69 (85) 98 Room Air I & O 09/14/18 06:59 Intake Total 440 ml Output Total 1125 ml Balance -685 ml Capillary Refill : Less Than 3 Seconds General Appearance: Anxious Neck: Normal Inspection Respiratory: Lungs Clear Cardiovascular: Regular Rate, Rhythm Gastrointestinal: non tender, soft Neurologic/Psychiatric: Alert, Oriented x3 Skin: Warm/Dry Results Lab Laboratory Tests 09/13/18 11:45: White Blood Count 5.6, Red Blood Count 4.22L, Hemoglobin 7.4L, Hematocrit 29L, Mean Corpuscular Volume 68L, Mean Corpuscular Hemoglobin 18L, Mean Corpuscular Hemoglobin Concent 26L, Red Cell Distribution Width 22.4H, Platelet Count 246, Mean Platelet Volume 9.9, Neutrophils (%) (Auto) 54, Lymphocytes (%) (Auto) 31, Monocytes (%) (Auto) 10, Eosinophils (%) (Auto) 4, Basophils (%) (Auto) 1, Neutrophils # (Auto) 3.0, Lymphocytes # (Auto) 1.7, Monocytes # (Auto) 0.6, Eosinophils # (Auto) 0.2, Basophils # (Auto) 0.0, Sodium Level 137, Potassium Level 4.3, Chloride Level 105, Carbon Dioxide Level 25, Anion Gap 7, Blood Urea Nitrogen 8, Creatinine 0.90, Estimat Glomerular Filtration Rate > 60, BUN/ Creatinine Ratio 9, Glucose Level 87, Calcium Level 9.2, Corrected Calcium 9.1, Total Bilirubin 0.5, Aspartate Amino Transf (AST/SGOT) 20, Alanine Aminotransferase (ALT/SGPT) 14, Alkaline Phosphatase 79, Total Protein 6.9, Albumin 4.1 09/14/18 05:35: White Blood Count 5.1, Red Blood Count 4.26L, Hemoglobin 7.8L, Hematocrit 29L, Mean Corpuscular Volume 68L, Mean Corpuscular Hemoglobin 18L, Mean Corpuscular Hemoglobin Concent 27L, Red Cell Distribution Width 22.7H, Platelet Count 131, Mean Platelet Volume , Neutrophils (%) (Auto) 64, Lymphocytes (%) (Auto) 24, Monocytes (%) (Auto) 8, Eosinophils (%) (Auto) 3, Basophils (%) (Auto) 0, Neutrophils # (Auto) 3.3, Lymphocytes # (Auto) 1.2, Monocytes # (Auto) 0.4, Eosinophils # (Auto) 0.2, Basophils # (Auto) 0.0, Sodium Level 139, Potassium Level 4.3, Chloride Level 106, Carbon Dioxide Level 23, Anion Gap 10, Blood Urea Nitrogen 10, Creatinine 0.84, Estimat Glomerular Filtration Rate > 60, BUN/ Creatinine Ratio 12, Glucose Level 95, Calcium Level 8.9, Corrected Calcium 9.1 , Total Bilirubin 0.8, Aspartate Amino Transf (AST/SGOT) 21, Alanine Aminotransferase (ALT/SGPT) 14, Alkaline Phosphatase 72, Total Protein 6.2L, Albumin 3.7 Assessment/Plan Assessment/Plan Assess & Plan/Chief Complaint gentleman with anemia, possibly due to chronic blood loss. Previous history of colon polyps. Reasonable to observe, transfuse and perform colonoscopy during the current hospital admission. Gentleman with chronic anemia due to GI blood loss. Anti-coagulation on hold. Reasonable to use low molecular weight heparin as bridge therapy to protect against against stroke. Colonoscopy scheduled for . Final Diagnosis Personal history of polyps. Chronic GI blood loss. Paroxysmal atrial tachycardia Clinical Quality Measures DVT/VTE Risk/Contraindication: Risk Factor Score Per Nursin RFS Level Per Nursing on Admit: 3=High JONY KELLER MD Sep 14, 2018 11:41
[2018-09-14 12:00] VITALS: BP 128/73
--- NOTE | 2018-09-14 13:51 | History & Physical-Hospitalist ---
History of Present Illness HPI/Chief Complaint The patient is a 58-year-old white male who presented to the emergency room yesterday with complaints of generalized weakness and loss of energy. On workup he was found to have a hemoglobin of 7.4. I questioned him about his stools. He reports that he has been having red blood in the stools since 2015. This coincided with his having an ablation a [facility] for supraventricular tachycardias. He thought that this represented blood from his hemorrhoids. There has been no black blood to be seen. He had a contact in January 2015 which his hemoglobin was 7.3. He had a colonoscopy and upper endoscopy performed by Dr. Way which produced a nonspecific gastritis and no sites of bleeding in the colon. In 2012 he had a tubular villous adenoma in the sigmoid colon which was removed endoscopically. At that time he had what appeared to be thickening and ulceration in the right colon with the possibility of ischemic changes. Date Seen 09/14/18 Attending Physician Renny Pizano MD PCP Andressa Sosa Referring Physician Date of Admission Sep 13, 2018 at 12:23 Home Medications & Allergies Home Medications Reviewed patient Home Medication Reconciliation performed by pharmacy medication reconciliations medical records technician and/or nursing. Patients Allergies have been reviewed. Allergies Allergies Coded Allergies NKANo Known Allergies (Unverified Allergy, Mild, 05/10/09) Past Ijrecib-Bmubgb-Frxldt Hx Patient Social History Alcohol Use: Occasionally Uses Alcohol Beverage of Choice: Whiskey Recreational Drug Use: No Smoking Status: Never a Smoker Physical Abuse Screen: No Sexual Abuse: No Recent Foreign Travel: No Contact w/other who traveled: No Recent Hopitalizations: No Recent Infectious Disease Expo: No Immunizations Up To Date Tetanus Booster (TDap): More than 5yrs Seasonal Allergies Seasonal Allergies: No Past Medical History Cardiac: Atrial Fibrillation, Hypertension Sexually Transmitted Disease: No HIV/AIDS: No Gastrointestinal: Colitis HEENT: Cataract Loss of Vision: Denies Hearing Impairment: Denies History of Blood Disorders: No Adverse Reaction to Blood Rodarte: No Family History No Pertinent Family Hx Review of Systems Constitutional: see HPI EENTM: no symptoms reported Respiratory: short of breath (easily winded with exercise) Cardiovascular: palpitations Gastrointestinal: other (hematochezia/hemorrhoids) Genitourinary: no symptoms reported Musculoskeletal: no symptoms reported Skin: no symptoms reported Psychiatric/Neurological: No Symptoms Reported Physical Exam Physical Exam Vital Signs Vital Signs - First Documented 09/13/18 11:15 Temp 98.0 Pulse 84 Resp 18 B/P (MAP) 140/82 (101) Pulse Ox 98 O2 Delivery Room Air Capillary Refill : Less Than 3 Seconds Height, Weight, BMI Height: 6'0.00" Weight: 302lbs. 0.0oz. 136.988291pr; 41.0 BMI Method:Stated General Appearance: No Apparent Distress, WD/WN Eyes: Bilateral Eye Normal Inspection HEENT: Normal ENT Inspection Neck: Normal Inspection Cardiovascular: Regular Rate, Rhythm, No Edema, No Gallop, No JVD, No Murmur Gastrointestinal: Normal Bowel Sounds, No Organomegaly Back: Normal Inspection Extremity: Normal Capillary Refill, Normal Inspection, Normal Range of Motion Neurologic/Psychiatric: Alert, Oriented x3, No Motor/Sensory Deficits, Normal Mood/Affect Skin: Normal Color, Warm/Dry Lymphatic: No Adenopathy Results Results/Procedures Labs Laboratory Tests 09/13/18 11:45 09/14/18 05:35 Patient resulted labs reviewed. Assessment/Plan Admission Diagnosis Anemia/hemoglobin 7.4 Admission Status: Inpatient Order (span 2 midnights) Reason for Inpatient Admission: Requires surveillance and upper and lower endoscopy Clinical Quality Measures DVT/VTE Risk/Contraindication: Risk Factor Score Per Nursin RFS Level Per Nursing on Admit: 3=High RENNY PIZANO MD Sep 14, 2018 13:51
[2018-09-14] MEDS ORDERED: MAGNESIUM CITRATE 300 ML BTL PO NR (14:00)
[2018-09-14 15:49] VITALS: BP 124/75
[2018-09-14] MEDS: ENOXAPARIN 300 MG/3 ML (LOVENOX) MULTI-DOSE VIAL SQ SCH (16:40)
--- NOTE | 2018-09-14 17:30 | Progress Note-Cardiology ---
Cardiology SOAP Progress Note Subjective: No cp or palp or syncope No significant abd discomfort No shortness of breath Objective: I&O/Vital Signs 09/14/18 09/14/18 09/14/18 09/14/18 07:00 08:00 08:10 12:00 Temp 98.4 98.7 Pulse 64 91 63 Resp 18 18 B/P (MAP) 125/82 (96) 128/73 (91) Pulse Ox 97 96 96 O2 Delivery Room Air Room Air Room Air 09/14/18 09/14/18 13:00 15:49 Temp 98.3 Pulse 68 75 Resp 20 B/P (MAP) 124/75 (91) Pulse Ox 99 O2 Delivery Room Air 09/14/18 00:00 Intake Total 340 ml Output Total 675 ml Balance -335 ml Weight (Pounds): 302 Weight (Ounces): 0.0 Weight (Calculated Kilograms): 136.810563 Constitutional: AAO x 3, well-developed, well-nourished Respiratory: No accessory muscle use, No respiratory distress; chest expansion is symmetric, chest is bilaterally symmetric, lungs clear to auscultation Cardiovascular: regular rate-rhythm; No JVD; S1 and S2 Gastrointestional: No tender; soft, round, audible bowel sounds Extremities: no lower extremity edema bilateral Neurologic/Psychiatric: grossly intact, power is 5/5 both on sides Skin: No rash, No ulcerations Results/Procedures: Labs Laboratory Tests 09/14/18 05:35: White Blood Count 5.1, Red Blood Count 4.26L, Hemoglobin 7.8L, Hematocrit 29L, Mean Corpuscular Volume 68L, Mean Corpuscular Hemoglobin 18L, Mean Corpuscular Hemoglobin Concent 27L, Red Cell Distribution Width 22.7H, Platelet Count 131, Mean Platelet Volume , Neutrophils (%) (Auto) 64, Lymphocytes (%) (Auto) 24, Monocytes (%) (Auto) 8, Eosinophils (%) (Auto) 3, Basophils (%) (Auto) 0, Neutrophils # (Auto) 3.3, Lymphocytes # (Auto) 1.2, Monocytes # (Auto) 0.4, Eosinophils # (Auto) 0.2, Basophils # (Auto) 0.0, Sodium Level 139, Potassium Level 4.3, Chloride Level 106, Carbon Dioxide Level 23, Anion Gap 10, Blood Urea Nitrogen 10, Creatinine 0.84, Estimat Glomerular Filtration Rate > 60, BUN/ Creatinine Ratio 12, Glucose Level 95, Calcium Level 8.9, Corrected Calcium 9.1 , Total Bilirubin 0.8, Aspartate Amino Transf (AST/SGOT) 21, Alanine Aminotransferase (ALT/SGPT) 14, Alkaline Phosphatase 72, Total Protein 6.2L, Albumin 3.7 Laboratory Tests 09/13/18 11:45 09/14/18 05:35 A/P: Assessment: GI bleed leading to anemia. Pt awaiting endoscopy with Dr Way Exertional shortness of breath, chronic PAFib/Flutter, possibly related to intermittent heavy alcohol use and/or sleep apnea syndrome, s/p a fib ablation with Dr West Apr 2015. 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 We recommend that this be done as soon as possible so that he doesn't stay unprotected against thromboembolic stroke for long * I answered his CV-related questions CATRACHITA AMADOR MD FACP [facility] Sep 14, 2018 17:30
[2018-09-14 20:00] VITALS: BP 138/62
[2018-09-14] MEDS: SIMvastatin 10 MG (ZOCOR) TAB PO SCH (20:33)
[2018-09-15 00:25] VITALS: BP 138/61
[2018-09-15] MEDS: ENOXAPARIN 300 MG/3 ML (LOVENOX) MULTI-DOSE VIAL SQ SCH (03:17)
[2018-09-15 03:35] VITALS: BP 130/67
[2018-09-15 05:45] LABS: BASOPHILS % (AUTO) 1 % (0-10); EOSINOPHILS # (AUTO) 0.2 10^3/uL (0.0-0.3); EOSINOPHILS % (AUTO) 3 % (0-10); HEMATOCRIT 32 % (40-54); HEMOGLOBIN 8.4 G/DL (13.3-17.7); LYMPHOCYTES # (AUTO) 1.3 X 10^3 (1.0-4.0); LYMPHOCYTES % (AUTO) 22 % (12-44); MEAN CORPUSCULAR HEMOGLOBIN 18 PG (25-34); MEAN CORPUSCULAR HGB CONC 27 G/DL (32-36); MEAN CORPUSCULAR VOLUME 67 FL (80-99); MEAN PLATELET VOLUME 10.1 FL (7.4-10.4); MONOCYTES # (AUTO) 0.5 X 10^3 (0.0-1.0); MONOCYTES % (AUTO) 8 % (0-12); NEUTROPHILS # (AUTO) 3.9 X 10^3 (1.8-7.8); NEUTROPHILS % (AUTO) 66 % (42-75); PLATELET COUNT 244 10^3/uL (130-400); WHITE BLOOD COUNT 5.9 10^3/uL (4.3-11.0)
[2018-09-15 06:34] LABS: ALANINE AMINOTRANSFERASE 18 U/L (0-55); ALKALINE PHOSPHATASE 80 U/L (40-136); BILIRUBIN,TOTAL 0.8 MG/DL (0.1-1.0); BUN/CREATININE RATIO 14; CALCIUM 9.1 MG/DL (8.5-10.1); CARBON DIOXIDE 24 MMOL/L (21-32); CHLORIDE 105 MMOL/L (98-107); CREATININE SERUM 0.81 MG/DL (0.60-1.30); GFR ESTIMATED > 60; GLUCOSE 97 MG/DL (70-105); POTASSIUM 4.2 MMOL/L (3.6-5.0); SODIUM 136 MMOL/L (135-145); TOTAL PROTEIN 6.8 GM/DL (6.4-8.2)
[2018-09-15 08:00] VITALS: BP 121/68
[2018-09-15] MEDS ORDERED: MAGNESIUM CITRATE 300 ML BTL PO SCH ×2 (08:00→14:00)
[2018-09-15] MEDS: meTOprolol SUCCINATE 100 MG (TOPROL XL) TAB PO SCH ×2 (08:33→20:41)
--- NOTE | 2018-09-15 09:15 | Progress Note-Hospitalist ---
Subjective HPI/CC On Admission Date Seen by Provider: Sep 15, 2018 Time Seen by Provider: 09:30 The patient is a 58-year-old white male who presented to the emergency room yesterday with complaints of generalized weakness and loss of energy. On workup he was found to have a hemoglobin of 7.4. I questioned him about his stools. He reports that he has been having red blood in the stools since 2015. This coincided with his having an ablation a [facility] for supraventricular tachycardias. He thought that this represented blood from his hemorrhoids. There has been no black blood to be seen. He had a contact in January 2015 which his hemoglobin was 7.3. He had a colonoscopy and upper endoscopy performed by Dr. Way which produced a nonspecific gastritis and no sites of bleeding in the colon. In 2012 he had a tubular villous adenoma in the sigmoid colon which was removed endoscopically. At that time he had what appeared to be thickening and ulceration in the right colon with the possibility of ischemic changes. Subjective/Events-last exam Pt having no new problems reported that he didn't have a PCP but when questioned further he reported that he does see Iris Sosa on a regular basis and Dr. Villarreal for paroxysmal atrial fibrillation s/p ablation but he had been maintained on anticoagulation that has been stopped since admission Received one unit of packed red blood cells his hgb is stable at 8 Endoscopy scheduled for had a tubular adenoma in the passed managed by Dr. Way Review of Systems General: Fatigue Objective Exam Vital Signs Vital Signs Date Time Temp Pulse Resp B/P (MAP) Pulse Ox O2 Delivery O2 Flow Rate FiO2 09/15/18 16:00 98.9 74 16 146/72 (96) 98 Room Air Capillary Refill : Less Than 3 Seconds General Appearance: No Apparent Distress, WD/WN HEENT: Normal ENT Inspection Neck: Normal Inspection Respiratory: Lungs Clear Cardiovascular: Regular Rate, Rhythm, No Edema, No Gallop, No JVD, No Murmur Gastrointestinal: Normal Bowel Sounds, No Organomegaly Back: Normal Inspection Extremity: Normal Capillary Refill, Normal Inspection, Normal Range of Motion Neurologic/Psychiatric: Alert, Oriented x3, No Motor/Sensory Deficits, Normal Mood/Affect Skin: Normal Color, Warm/Dry Lymphatic: No Adenopathy Results/Procedures Lab Laboratory Tests 09/15/18 05:25 Patient resulted labs reviewed. Assessment/Plan Assessment and Plan Assess & Plan/Chief Complaint Assessment: GIB Symptomatic anemia Transfusion of 1 unit of blood Anticoagulation Plan: Endoscopy tomorrow Monitor hgb Diagnosis/Problems Diagnosis/Problems (1) Hematochezia Status: Resolved Resolution Date/Time: 09/15/18 @ 20:40 (2) Symptomatic anemia Status: Acute (3) Alcoholism Status: Chronic (4) Atrial fibrillation Status: Chronic Qualifiers: Atrial fibrillation type: paroxysmal Qualified Codes: I48.0 - Paroxysmal atrial fibrillation (5) Anticoagulant long-term use Status: Chronic Clinical Quality Measures DVT/VTE Risk/Contraindication: Risk Factor Score Per Nursin RFS Level Per Nursing on Admit: 3=High TELMA OLIVEIRA DO Sep 15, 2018 09:15
--- NOTE | 2018-09-15 09:58 | Progress Note-Cardiology ---
Cardiology SOAP Progress Note Subjective: No cp or palp or syncope Objective: I&O/Vital Signs 09/15/18 09/15/18 09/15/18 09/15/18 00:25 01:00 03:35 07:00 Temp 99.4 99.7 Pulse 74 70 70 70 Resp 16 16 B/P (MAP) 138/61 (86) 130/67 (88) Pulse Ox 94 96 O2 Delivery Room Air Room Air 09/15/18 08:00 Temp 98.0 Pulse 68 Resp 18 B/P (MAP) 121/68 (85) Pulse Ox 94 O2 Delivery Room Air 09/15/18 00:00 Intake Total 940 ml Output Total 1350 ml Balance -410 ml Weight (Pounds): 302 Weight (Ounces): 0.0 Weight (Calculated Kilograms): [id number] Constitutional: AAO x 3, well-developed, well-nourished Respiratory: No accessory muscle use, No respiratory distress; chest expansion is symmetric, chest is bilaterally symmetric, lungs clear to auscultation Cardiovascular: regular rate-rhythm; No JVD; S1 and S2 Gastrointestional: No tender; soft, round, audible bowel sounds Extremities: no lower extremity edema bilateral Neurologic/Psychiatric: grossly intact, power is 5/5 both on sides Skin: No rash, No ulcerations Results/Procedures: Labs Laboratory Tests 09/15/18 05:25: White Blood Count 5.9, Red Blood Count 4.69, Hemoglobin 8.4L, Hematocrit 32L, Mean Corpuscular Volume 67L, Mean Corpuscular Hemoglobin 18L, Mean Corpuscular Hemoglobin Concent 27L, Red Cell Distribution Width 23.0H, Platelet Count 244, Mean Platelet Volume 10.1, Neutrophils (%) (Auto) 66, Lymphocytes (%) (Auto) 22 , Monocytes (%) (Auto) 8, Eosinophils (%) (Auto) 3, Basophils (%) (Auto) 1, Neutrophils # (Auto) 3.9, Lymphocytes # (Auto) 1.3, Monocytes # (Auto) 0.5, Eosinophils # (Auto) 0.2, Basophils # (Auto) 0.0, Sodium Level 136, Potassium Level 4.2, Chloride Level 105, Carbon Dioxide Level 24, Anion Gap 7, Blood Urea Nitrogen 11, Creatinine 0.81, Estimat Glomerular Filtration Rate > 60, BUN/ Creatinine Ratio 14, Glucose Level 97, Calcium Level 9.1, Corrected Calcium 9.1 , Total Bilirubin 0.8, Aspartate Amino Transf (AST/SGOT) 29, Alanine Aminotransferase (ALT/SGPT) 18, Alkaline Phosphatase 80, Total Protein 6.8, Albumin 4.0 A/P: Assessment: GI bleed leading to anemia. Pt awaiting endoscopy with Dr Way Exertional shortness of breath, chronic PAFib/Flutter, possibly related to intermittent heavy alcohol use and/or sleep apnea syndrome, s/p a fib ablation with Dr West Apr 2015. 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 We recommend that this be done as soon as possible so that he doesn't stay unprotected against thromboembolic stroke for long * Hold enoxaparin in anticipation of endoscopy/intervention tomorrow CATRACHITA AMADOR MD FACP FAC CCDS Sep 15, 2018 09:58
[2018-09-15 16:00] VITALS: BP 146/72
[2018-09-15] MEDS: SIMvastatin 10 MG (ZOCOR) TAB PO SCH (20:41)
[2018-09-15 23:55] VITALS: BP 129/58
--- NOTE | 2018-09-16 05:20 | Discharge Summary-Hospitalist ---
Diagnosis/Chief Complaint Date of Admission Sep 13, 2018 at 12:23 Date of Discharge Admission Diagnosis Anemia/hemoglobin 7.4 Discharge Diagnosis (1) Hematochezia Status: Resolved (2) Symptomatic anemia Status: Acute (3) Alcoholism Status: Chronic (4) Atrial fibrillation Status: Chronic (5) Anticoagulant long-term use Status: Chronic Discharge Summary Discharge Physical Exam Allergies: Coded Allergies: NKANo Known Allergies (Unverified Allergy, Mild, 05/10/09) Vitals & I&Os Vital Signs Date Time Temp Pulse Resp B/P (MAP) Pulse Ox O2 Delivery O2 Flow Rate FiO2 09/16/18 10:28 09/16/18 08:00 98.1 76 20 96 Room Air General Appearance: No Apparent Distress, WD/WN HEENT: Normal ENT Inspection Respiratory: Lungs Clear Cardiovascular: Regular Rate, Rhythm, No Edema, No Gallop, No JVD, No Murmur Gastrointestinal: Normal Bowel Sounds, No Organomegaly Extremity: Normal Capillary Refill, Normal Inspection, Normal Range of Motion Skin: Normal Color, Warm/Dry Neurologic/Psychiatric: Alert, Oriented x3, No Motor/Sensory Deficits, Normal Mood/Affect Hospital Course Was the Problem List Reviewed?: Yes Hospital Course: Pt was deemed stable for DC with stable hemoglobin after transfusion and smoking sensation and alcohol consumption sensation was counseled and pt will see Iris Sosa and Dr. Villarreal with close follow-up after DC. Had endoscopy today, no adenoma or any polyp noted Will restart anticoagulation Labs (last 24 hrs) Laboratory Tests 09/17/18 09:58: Lab Scanned Report Transfusion Reaction Form Patient resulted labs reviewed. Pending Labs Laboratory Tests 09/17/18 09:58: Lab Scanned Report Transfusion Reaction Form Discussion & Recommendations Discharge Planning: <30 minutes discharge planning Discharge Home Medications: Active Scripts Active Reported Metoprolol Succinate 100 Mg Tab.er.24h 100 Mg PO BID Eliquis (Apixaban) 5 Mg Tablet 5 Mg PO BID Pravastatin Sodium 20 Mg Tablet 20 Mg PO HS Instructions to patient/family Please see electronic discharge instructions given to patient. Clinical Quality Measures DVT/VTE Risk/Contraindication: Risk Factor Score Per Nursin RFS Level Per Nursing on Admit: 3=High Problem Qualifiers (1) Atrial fibrillation: Atrial fibrillation type: paroxysmal Qualified Codes: I48.0 - Paroxysmal atrial fibrillation TELMA OLIVEIRA DO Sep 16, 2018 05:20
[2018-09-16 08:00] VITALS: BP 134/77
[2018-09-16] MEDS ORDERED: NS IV 500 ML 500 ML ONE (08:18)
[2018-09-16] MEDS ORDERED: MIDAZOLAM 2 MG/2 ML (VERSED) VIAL ONE ×3 (08:27)
[2018-09-16] MEDS ORDERED: fentaNYL INJECTION 100 MCG/2 ML AMP ONE (08:27)
[2018-09-16] MEDS ORDERED: NS IV 500 ML 500 ML IV PRN (09:00)
[2018-09-16] MEDS ORDERED: fentaNYL INJECTION 100 MCG/2 ML AMP IVP ONE (09:00)
[2018-09-16] MEDS ORDERED: MIDAZOLAM 2 MG/2 ML (VERSED) VIAL IVP ONE (09:00)
--- NOTE | 2018-09-16 09:00 | Endo Procedure Record ---
Endo Procedure Report Date of Procedure Last Colonoscopy: Yes Sep 16, 2018 Surgeon (s) JONY KELLER MD Post Procedure/Op Diagnosis External and internal hemorrhoids Procedure Performed colonoscopy to cecum Description of Procedure Anesthesia Type: Conscious Sedation Specimen(s) collected/removed None Description of the Procedure Indication for the procedure: This gentleman has a personal history of tubulovillous adenoma involving his sigmoid colon. He has been admitted with intermittent rectal bleeding and anemia, possibly due to chronic GI blood loss. Therefore, a follow-up colonoscopy was felt to be reasonable. Informed consent was obtained after reviewing the procedure in detail. Description of the procedure: He was placed in left lateral decubitus position and his vital signs were monitored. Conscious sedation was achieved using Versed and fentanyl. Examination of the perianal area revealed external hemorrhoids and skin tags. Digital examination was unremarkable. The scope was then introduced into the rectum and advanced all the way up to the cecum. The quality of bowel preparation was excellent. The scope was then withdrawn slowly and the mucosa examined in a systematic fashion. Findings: External and internal hemorrhoids, the source of his bleeding. No recurrent polyps were found. He tolerated the procedure well and was taken back to the nursing area in a stable condition. Impression rectal bleeding due to hemorrhoids. No recurrent polyps. Recommend surveillance colonoscopy in 5 years. JONY KELLER MD Sep 16, 2018 09:00
[2018-09-16] MEDS: meTOprolol SUCCINATE 100 MG (TOPROL XL) TAB PO SCH (10:24)
== END 2018-09-16 11:00 | disposition home or self-care (01) | DRG 394 ==
LOC: EDUNIT# 10:51 → ER 10:55 → 4TH 12:23
PROVIDERS: ADMIT Internal Medicine; ATTEND Internal Medicine
DX: K64.8 Other hemorrhoids (principal); K64.4 Residual hemorrhoidal skin tags; D50.0 Iron deficiency anemia secondary to blood loss (chronic); I48.92 Unspecified atrial flutter; I47.1 Supraventricular tachycardia; I48.0 Paroxysmal atrial fibrillation; G47.30 Sleep apnea, unspecified; I10 Essential (primary) hypertension; E78.5 Hyperlipidemia, unspecified; I34.0 Nonrheumatic mitral (valve) insufficiency; D11.9 Benign neoplasm of major salivary gland, unspecified; F10.20 Alcohol dependence, uncomplicated; Z87.11 Personal history of peptic ulcer disease; Z86.010 Personal history of colon polyps; Z87.19 Personal history of other diseases of the digestive system; Z87.891 Personal history of nicotine dependence; Z91.19 Patient's noncompliance with other medical treatment and regimen
CPT/HCPCS: 36415; 71045; 80053; 85025; 86850; 86900; 86901; 86920; 93005

== ENCOUNTER 2019-01-17 13:16 | Outpatient (CLI) | payer BC ==
[~2019-01-17 13:16] MED LIST changes: +APIX5TAB PO; +METO-395 PO; +PRAV20TA3 PO
--- NOTE | 2019-01-17 14:18 | Diagnostic Imaging Report ---
PROCEDURE: CT sinuses without contrast TECHNIQUE: Multiple contiguous axial images were obtained through the sinuses without the use of intravenous contrast. Coronal and sagittal reformations were then performed. Auto Exposure Controls were utilized during the CT exam to meet ALARA standards for radiation dose reduction. INDICATION: Chronic sinusitis. FINDINGS: There is a solid appearing lobulated mass identified within the right parotid gland measuring 5.1 x 3.8 x 4.6 cm. The left parotid gland is unremarkable. No definite cervical lymphadenopathy is seen. Images of the sinuses demonstrate some mucosal thickening of the frontal sinus. There is diffuse ethmoid air cell opacification and mucosal thickening as well. The left maxillary sinus is nearly completely opacified. Right maxillary sinus is fairly clear. Right ostiomeatal complex is patent. There is opacification of the left ostiomeatal complex. Nasal septum does show slight deviation to the left. Sphenoid sinus appears to be fairly clear. Mastoids are well aerated. IMPRESSION: 1. Large right parotid mass. 2. Paranasal sinus disease, as described with complete opacification of the left maxillary sinus. Dictated by: Dictated on workstation # [id number]
== END 2019-01-17 14:35 | disposition home or self-care (01) ==
LOC: SLEEP 13:16
PROVIDERS: ATTEND Otolaryngology Otolaryngology/Facial Plastic Surgery
DX: G47.33 Obstructive sleep apnea (adult) (pediatric) (principal); D11.0 Benign neoplasm of parotid gland; J32.9 Chronic sinusitis, unspecified
CPT/HCPCS: 70486

== ENCOUNTER 2019-02-03 12:00 | Outpatient (CLI) | payer BC ==
[~2019-02-03] VITALS: Ht 182.9 cm; Wt 139.5 kg
[2019-02-03] MEDS ORDERED: FERR-84 PO (12:10)
[2019-02-03] MEDS ORDERED: DOCU100T7 PO (12:10)
[2019-02-03] MEDS ORDERED: ASPI-586 PO (12:10)
[2019-02-03 12:16] VITALS: BP 141/87
[2019-02-03 13:10] LABS: BASOPHILS % (AUTO) 1 % (0-10); EOSINOPHILS # (AUTO) 0.2 10^3/uL (0.0-0.3); EOSINOPHILS % (AUTO) 4 % (0-10); HEMATOCRIT 44 % (40-54); LYMPHOCYTES # (AUTO) 1.5 X 10^3 (1.0-4.0); LYMPHOCYTES % (AUTO) 29 % (12-44); MEAN CORPUSCULAR HEMOGLOBIN 29 PG (25-34); MEAN CORPUSCULAR HGB CONC 32 G/DL (32-36); MEAN CORPUSCULAR VOLUME 92 FL (80-99); MEAN PLATELET VOLUME 10.3 FL (7.4-10.4); MONOCYTES # (AUTO) 0.4 X 10^3 (0.0-1.0); MONOCYTES % (AUTO) 9 % (0-12); NEUTROPHILS # (AUTO) 3.1 X 10^3 (1.8-7.8); NEUTROPHILS % (AUTO) 59 % (42-75); PLATELET COUNT 70 10^3/uL (130-400); RED CELL DISTRIBUTION WIDTH 20.4 % (10.0-14.5); WHITE BLOOD COUNT 5.2 10^3/uL (4.3-11.0)
[2019-02-03 13:22] LABS: BUN/CREATININE RATIO 13; CALCIUM 9.4 MG/DL (8.5-10.1); CARBON DIOXIDE 24 MMOL/L (21-32); CHLORIDE 107 MMOL/L (98-107); CREATININE SERUM 0.86 MG/DL (0.60-1.30); GFR ESTIMATED > 60; GLUCOSE 107 MG/DL (70-105); SODIUM 140 MMOL/L (135-145)
== END 2019-02-03 16:04 ==
LOC: PREOP 12:00
PROVIDERS: ATTEND Otolaryngology Otolaryngology/Facial Plastic Surgery
DX: Z01.812 Encounter for preprocedural laboratory examination (principal); D36.9 Benign neoplasm, unspecified site
CPT/HCPCS: 36415; 80048; 85025; 87081

== ENCOUNTER 2019-03-04 15:09 | Outpatient (RCR) | payer BC, OTHER ==
[2019-02-11 15:08] LABS: BASOPHILS % (AUTO) 0 % (0-10); EOSINOPHILS # (AUTO) 0.2 10^3/uL (0.0-0.3); EOSINOPHILS % (AUTO) 4 % (0-10); LYMPHOCYTES # (AUTO) 1.4 X 10^3 (1.0-4.0); LYMPHOCYTES % (AUTO) 25 % (12-44); MEAN CORPUSCULAR HGB CONC 33 G/DL (32-36); MEAN CORPUSCULAR VOLUME 93 FL (80-99); MEAN PLATELET VOLUME 9.8 FL (7.4-10.4); MONOCYTES # (AUTO) 0.4 X 10^3 (0.0-1.0); MONOCYTES % (AUTO) 7 % (0-12); NEUTROPHILS # (AUTO) 3.7 X 10^3 (1.8-7.8); NEUTROPHILS % (AUTO) 64 % (42-75)
[2019-02-11 15:12] LABS: HEMATOCRIT 42 % (40-54); HEMOGLOBIN 13.8 G/DL (13.3-17.7); MEAN CORPUSCULAR HEMOGLOBIN 30 PG (25-34); PLATELET COUNT 129 10^3/uL (130-400); WHITE BLOOD COUNT 6.4 10^3/uL (4.3-11.0)
[2019-02-11 15:37] LABS: ABSOLUTE RETIC # 56 10e9/L (24-90); BASOPHILS % (AUTO) 0 % (0-10); EOSINOPHILS # (AUTO) 0.2 10^3/uL (0.0-0.3); EOSINOPHILS % (AUTO) 3 % (0-10); HEMATOCRIT 44 % (40-54); HEMOGLOBIN 14.2 G/DL (13.3-17.7); LYMPHOCYTES # (AUTO) 1.4 X 10^3 (1.0-4.0); LYMPHOCYTES % (AUTO) 24 % (12-44); MEAN CORPUSCULAR HEMOGLOBIN 30 PG (25-34); MEAN CORPUSCULAR HGB CONC 32 G/DL (32-36); MEAN CORPUSCULAR VOLUME 93 FL (80-99); MONOCYTES # (AUTO) 0.3 X 10^3 (0.0-1.0); MONOCYTES % (AUTO) 6 % (0-12); NEUTROPHILS # (AUTO) 3.9 X 10^3 (1.8-7.8); NEUTROPHILS % (AUTO) 66 % (42-75); PLATELET COUNT 134 10^3/uL (130-400); RED CELL DISTRIBUTION WIDTH 18.1 % (10.0-14.5); RETICULOCYTE % 1.19 % (0.50-2.40); WHITE BLOOD COUNT 5.9 10^3/uL (4.3-11.0)
[2019-02-11 16:45] LABS: BASOPHILS % (MANUAL) 0 %; EOSINOPHILS % (MANUAL) 2 %; LYMPHOCYTES % (MANUAL) 20 %; MONOCYTES % (MANUAL) 8 %; NEUTROPHILS % (MANUAL) 68 %; REACTIVE LYMPHOCYTES 2 %
[2019-02-11 16:46] LABS: PLATELET CLUMPS SLIGHT; POIKILOCYTOSIS SLIGHT
[2019-02-11 16:47] LABS: ANISOCYTOSIS SLIGHT; ELLIPT/OVALOCYTES SLIGHT; MICROCYTOSIS SLIGHT; TEAR DROP CELLS SLIGHT
[2019-02-14 15:54] LABS: HEPATITIS C ANTIBODY C Non-Reactive (Non-Reactive)
[~2019-03-04 15:09] MED LIST changes: +ASPI-586 PO; +DOCU100T7 PO; +FERR-84 PO
[2019-03-04 16:24] LABS: BASOPHILS % (AUTO) 1 % (0-10); EOSINOPHILS # (AUTO) 0.3 10^3/uL (0.0-0.3); EOSINOPHILS % (AUTO) 4 % (0-10); LYMPHOCYTES # (AUTO) 1.6 X 10^3 (1.0-4.0); LYMPHOCYTES % (AUTO) 25 % (12-44); MEAN CORPUSCULAR HGB CONC 33 G/DL (32-36); MEAN CORPUSCULAR VOLUME 95 FL (80-99); MEAN PLATELET VOLUME 9.8 FL (7.4-10.4); MONOCYTES # (AUTO) 0.5 X 10^3 (0.0-1.0); MONOCYTES % (AUTO) 9 % (0-12); NEUTROPHILS # (AUTO) 3.7 X 10^3 (1.8-7.8); NEUTROPHILS % (AUTO) 61 % (42-75); RED CELL DISTRIBUTION WIDTH 14.5 % (10.0-14.5)
[2019-03-04 16:28] LABS: HEMATOCRIT 46 % (40-54); MEAN CORPUSCULAR HEMOGLOBIN 31 PG (25-34); PLATELET COUNT 153 10^3/uL (130-400)
[2019-03-04 16:29] LABS: WHITE BLOOD COUNT 6.8 10^3/uL (4.3-11.0)
== END 2019-05-12 | disposition home or self-care (01) ==
LOC: ONC 15:09
PROVIDERS: ATTEND Internal Medicine Hematology & Oncology
DX: D69.6 Thrombocytopenia, unspecified (principal); I10 Essential (primary) hypertension; I48.0 Paroxysmal atrial fibrillation; G47.33 Obstructive sleep apnea (adult) (pediatric); Z87.11 Personal history of peptic ulcer disease; Z79.82 Long term (current) use of aspirin; Z79.899 Other long term (current) drug therapy
CPT/HCPCS: 36415; 80074; 82607; 82746; 85007; 85025; 85027; 85045; 85055; 86703; 99213; 99214

== ENCOUNTER 2019-04-07 05:35 | Outpatient (CLI) | payer BC ==
[~2019-04-07] VITALS: Ht 182.9 cm; Wt 139.3 kg
== END 2019-04-07 12:42 | disposition home or self-care (01) ==
LOC: PREOP 05:35
PROVIDERS: ATTEND Otolaryngology Otolaryngology/Facial Plastic Surgery
DX: Z01.818 Encounter for other preprocedural examination (principal)

== ENCOUNTER 2019-04-15 05:57 | Day surgery (SDC) | payer BC ==
[2019-04-15] VITALS (8 sets, daily range): BP systolic 126–151; BP diastolic 70–84
[~2019-04-15] VITALS: Ht 182.9 cm; Wt 139.8 kg
[2019-04-15] MEDS: LACTATED RINGERS 1,000 ML IV PRN ×2 (06:45→08:43)
[2019-04-15] MEDS ORDERED: DEXAMETHASONE 10 MG/ML (DECADRON) 1 ML VIAL ONE (06:47)
[2019-04-15] MEDS ORDERED: ONDANSETRON 4 MG/2 ML (SDV) Z0FRAN ONE (06:47)
[2019-04-15] MEDS ORDERED: SEVOFLURANE (ULTANE) 15 ML INHAL SOLN ONE ×17 (06:47→11:16)
[2019-04-15] MEDS ORDERED: proPOfol 200 MG/20 ML (DIPRIVAN) VIAL IV ONE ×2 (06:47→07:29)
[2019-04-15] MEDS ORDERED: LIDOCAINE PF 2% 5 ML (XYLOCAINE) VIAL ONE (06:47)
[2019-04-15] MEDS ORDERED: MIDAZOLAM 2 MG/2 ML (VERSED) VIAL ONE (06:47)
[2019-04-15] MEDS ORDERED: fentaNYL INJECTION 100 MCG/2 ML AMP ONE ×2 (06:47→09:34)
[2019-04-15] MEDS ORDERED: MUPIROCIN 2% OINT 22 GM (BACTROBAN) TUBE ONE (06:49)
[2019-04-15] MEDS ORDERED: LIDOCAINE/EPI 1%-1:100,000 (XYLOCAINE) 20ML ONE (06:49)
[2019-04-15 06:57] LABS: BASOPHILS % (AUTO) 1 % (0-10); EOSINOPHILS # (AUTO) 0.2 10^3/uL (0.0-0.3); EOSINOPHILS % (AUTO) 3 % (0-10); HEMATOCRIT 45 % (40-54); HEMOGLOBIN 14.7 G/DL (13.3-17.7); LYMPHOCYTES # (AUTO) 1.4 X 10^3 (1.0-4.0); LYMPHOCYTES % (AUTO) 28 % (12-44); MEAN CORPUSCULAR HEMOGLOBIN 32 PG (25-34); MEAN CORPUSCULAR HGB CONC 33 G/DL (32-36); MEAN CORPUSCULAR VOLUME 99 FL (80-99); MEAN PLATELET VOLUME 11.4 FL (7.4-10.4); MONOCYTES # (AUTO) 0.4 X 10^3 (0.0-1.0); MONOCYTES % (AUTO) 7 % (0-12); NEUTROPHILS # (AUTO) 3.1 X 10^3 (1.8-7.8); NEUTROPHILS % (AUTO) 61 % (42-75); PLATELET COUNT 95 10^3/uL (130-400); RED CELL DISTRIBUTION WIDTH 14.3 % (10.0-14.5); WHITE BLOOD COUNT 5.1 10^3/uL (4.3-11.0)
[2019-04-15] MEDS ORDERED: SUCCINYLCHOLINE INJ 100 MG/5 ML SYR ONE (06:57)
--- NOTE | 2019-04-15 11:42 | Progress Note-Pre Operative ---
Pre-Operative Progress Note H&P Reviewed The H&P was reviewed, patient examined and no changes noted. Date Seen by Provider: Apr 15, 2019 Time Seen by Provider: 07:00 Date H&P Reviewed: Apr 15, 2019 Time H&P Reviewed: 07:00 Pre-Operative Diagnosis: Large Rigth Parotid Mass TANA MA MD Apr 15, 2019 11:42
--- NOTE | 2019-04-15 11:43 | Progress Note-Post Operative ---
Post-Operative Progess Note Surgeon (s)/Digital Marketing Strategist (s) Surgeon TANA MA MD Digital Marketing Strategist n/a Pre-Operative Diagnosis Large Rigth Parotid Mass Post-Operative Diagnosis same Post-Op Procedure Note Date of Procedure: Apr 15, 2019 Name of Procedure Performed: Rigth Parotidectomy Description & Findings Description and Findings: n/a Anesthesia Type get Estimated Blood Loss minimal Packing none. Specimen(s) collected/removed 1 number 7 STEPHEN drain right parotid-pleomorphic adenoma TANA MA MD Apr 15, 2019 11:43
[2019-04-15] MEDS ORDERED: ACETAMINOPHEN 325 MG TABLET PO PRN (11:45)
[2019-04-15] MEDS ORDERED: HYDROcodone/APAP 5 MG/325 MG (LORTAB) TAB PO PRN (11:45)
[2019-04-15] MEDS ORDERED: morphine INJ 10 MG/ML 1ML (SYR OR VIAL) IVP ONE (12:00)
[2019-04-15] MEDS ORDERED: ONDANSETRON 4 MG/2 ML (SDV) Z0FRAN IVP PRN (12:00)
[2019-04-15] MEDS ORDERED: HYDROmorphone 2 MG/ML VIAL (DILAUDID) IV ONE (12:00)
--- NOTE | 2019-04-15 12:55 | NUR ---
DELMIS ALICEA admitted to room 407-1, with an admitting diagnosis of S/P RIGHT PAROTIDECTOMY, on 04/15/2019 from POST OP via BED, accompanied by STAFF .DELMIS ZAPATA introduced to surroundings, call light, bed controls, phone, TV, temperature control, lights, meal times, smoking policy, visitor policy, side rail policy, bathrooms and showers. Patient Rights given to patient in the handbook.DELMIS ZAPATA verbalizes understanding that [facility] is not responsible for the loss or damage to any personal effects or valuables that are kept in the patients posession during their hospitalization.
[2019-04-15] MEDS: D5 1/2 NS W/KCL 20 MEQ/L 1,000 ML IV SCH (14:03)
--- NOTE | 2019-04-15 15:46 | Progress Note ---
Standard Progress Note Progress Notes/Assess & Plan Date Seen by a Provider: Apr 15, 2019 Time Seen by a Provider: 15:00 Progress/Assessment & Plan ENT-Ariel Called to see patient aregards to drain PAtient examined-dRain partially functioning cheek swollen but not tense facial movements stil lthe same-normal New drain reservoir placed with some improvement. As long as it doesnt get tense will continue to observe it still plan on removal of drain in am and t hn home if doing well diet as toleratd -ice and pressure to that side fo the face will see early in the am Final Diagnosis s/p right parotidectomy TANA MA MD Apr 15, 2019 15:46
--- NOTE | 2019-04-15 22:15 | NUR ---
pt up to bathroom. voided without difficulty.
[2019-04-16] VITALS: BP 126/69
[2019-04-16] MEDS: D5 1/2 NS W/KCL 20 MEQ/L 1,000 ML IV SCH (04:30)
[2019-04-16 04:45] VITALS: BP 128/73
--- NOTE | 2019-04-16 06:22 | Progress Note ---
Standard Progress Note Progress Notes/Assess & Plan Date Seen by a Provider: Apr 16, 2019 Time Seen by a Provider: 06:15 Progress/Assessment & Plan ENT-Ariel Called to see patient aregards to drain PAtient examined-dRain partially functioning cheek swollen but not tense facial movements stil lthe same-normal New drain reservoir placed with some improvement. As long as it doesnt get tense will continue to observe it still plan on removal of drain in am and t hn home if doing well diet as toleratd -ice and pressure to that side fo the face will see early in the am Gracie-04/16 less swollen t his am-drain dc'ed-minimal drainage overnight facial movements normal marcella diet mod discomfort will d/c rtc 7-10 days discharge instructions given discharge prescriptins in chart TANA MA MD Apr 16, 2019 06:22
--- NOTE | 2019-04-16 06:30 | NUR ---
Dr Shepard, here examined pt, discharge instructions given by Dr Shepard, Drain pulled and bandage applied per DR
[2019-04-16 07:40] VITALS: BP 128/73
[2019-04-16 08:00] VITALS: BP 117/71
--- NOTE | 2019-04-16 09:43 | Anesthesia-General Post-Op ---
General Patient Condition Mental Status/LOC: Same as Preop Cardiovascular: Satisfactory Nausea/Vomiting: Absent Respiratory: Satisfactory Pain: Controlled Complications: Absent Post Op Complications Complications None Follow Up Care/Instructions Patient Instructions None needed. Anesthesia/Patient Condition Patient Condition Patient discharged to home early this am. Per HELEN Chavez, the patient was doing well, no complaints, stable vital signs, no apparent adverse anesthesia problems. No complications reported per nursing. MEKA EL CRNA Apr 16, 2019 09:43
== END 2019-04-16 08:00 | disposition home or self-care (01) ==
LOC: SDC 05:57 → 4TH 12:43 → SDC 04-16 08:00
PROVIDERS: ATTEND Otolaryngology Otolaryngology/Facial Plastic Surgery
DX: D11.0 Benign neoplasm of parotid gland (principal); I10 Essential (primary) hypertension; G47.33 Obstructive sleep apnea (adult) (pediatric); I48.91 Unspecified atrial fibrillation; E66.01 Morbid (severe) obesity due to excess calories; Z68.41 Body mass index [BMI] 40.0-44.9, adult; Z79.82 Long term (current) use of aspirin
CPT/HCPCS: 36415; 85025; 87081; 88307; 88331